=== PATIENT | female | born 1955 | race Caucasian/White ===

== ENCOUNTER → 2021-05-25 | Outpatient (CLI) | payer OTHER, MEDICARE ==
[~2021-05-25] MED LIST: ACID REDUCER20 MG PO; AMLODIPINE BESY10 MG PO; AVAPRO300 MG PO; BONE UP PO; CHILDREN'S ASPI81 M1 PO; CYCLOBENZAPRINE5 MG PO; MIRALAX17 GM PO; NADOLOL 20 MG T20 M1 PO; OMEPRAZOLE 20 M20 M1 PO; PROBIOTIC1 EAC7 PO; ROSUVASTATIN CA10 MG PO; STOOL SOFTENER100 MG PO; TURMERIC 500 M1 EACH PO; XANAX 0.25 MG0.25 MG PO; ZINC16.7 MG PO
[2021-05-25 12:32] LABS: HEMATOCRIT 39.6 % (37.0-47.0); HEMOGLOBIN 13.1 gm/dL (12.0-15.0); MCH 29.7 pg (26.0-34.0); MCHC 33.2 g/dL (28.0-37.0); MCV 89.6 fL (80.0-100.0); RBC 4.42 mil/uL (4.20-5.00); RDW 13.3 % (10.5-14.5); WBC 3.8 thou/uL (4.0-11.0)
[2021-05-25 12:39] LABS: ALBUMIN 4.3 g/dL (3.4-5.0); CALCIUM 9.2 mg/dL (8.5-10.1); CREATININE 0.7 mg/dL (0.6-1.0)
[2021-05-25 12:40] LABS: URINE BILIRUBIN NEGATIVE (Negative); URINE BLOOD NEGATIVE (Negative); URINE CLARITY CLEAR; URINE COLOR YELLOW; URINE GLUCOSE-RANDOM* NEGATIVE (Negative); URINE KETONES NEGATIVE (Negative); URINE LEUKOCYTES-REFLEX NEGATIVE (Negative); URINE NITRITE-REFLEX NEGATIVE (Negative); URINE PROTEIN (DIPSTICK) NEGATIVE (Negative); URINE SPECIFIC GRAVITY <= 1.005 (1.005-1.035); URINE UROBILINOGEN 0.2 E.U./dl (0.2-1.0)
[2021-05-25 12:47] LABS: INR 0.97; PROTIME 10.6 Seconds (10.5-12.1)
== END ==
LOC: PAC 10:57
PROVIDERS: ATTEND Orthopaedic Surgery
DX: Z01.812 Encounter for preprocedural laboratory examination (principal); M17.11 Unilateral primary osteoarthritis, right knee

== ENCOUNTER 2021-06-07 10:07 | Observation (INO) | payer OTHER, MEDICARE ==
[~2021-06-07] VITALS: Ht 172.7 cm; Wt 79.8 kg
[2021-06-07 12:24] VITALS: BP 163/83
--- NOTE | 2021-06-07 18:03 | NUR ---
A/O X 4. ROOM AIR. BEDBOUND. LEFT HIP ANUPAM DRAIN. POLAR PACK TO LEFT LEG. BILATERAL LEG JOHANN HOSE. BILATERAL SCDS. LEFT FOREARM WITH D5 1/2 NS @ 100 MLS/HR. AT BEDSIDE. PAIN LEVEL 6/10 TO LEFT HIP.
[2021-06-07 19:16] VITALS: BP 146/77
[2021-06-07 23:37] VITALS: BP 146/84
[2021-06-08 01:40] VITALS: BP 170/91
[2021-06-08 01:45] VITALS: BP 165/90
--- NOTE | 2021-06-08 03:02 | NUR ---
PT IS A/O X4 AND IS UP WITH ASSISTANCE. CURRENTLY ON BEDREST FOLLOWING PROCEDURE AWAITING EVALUATION WITH PHYSICAL THERAPY IN THE AM. PT C/O PAIN AND NAUSEA. PRN PAIN AND NAUSEA MEDICATION GIVEN DIRECTED. PT BP ELEVATED. NOTIFIED ONCALL. NO NEW ORDERS GIVEN. WILL CONTINUE TO MONITOR BP AND CONDITION OF PT. ASYMPTOMATIC WITH ELEVATED BP. SCHEDULED BP MEDICATION GIVEN DIRECTED. DRSG TO LEFT KNEE IS C/D/I. POLAR PACK, SCD'S, AND JOHANN HOSE IN PLACE. FALL PRECAUTIONS IN PLACE, CALL LIGHT IS WITHIN REACH. PT CALLS OUT APPROPRIATELY FOR ASSISTANCE.
[2021-06-08 08:44] VITALS: BP 142/78
--- NOTE | 2021-06-08 09:19 | NUR ---
Assumed care of pt at 0700. Pt a&ox4. Pain controlled. Dressing c/d/i. Polar care in place. JOHANN hose and SCDs in place. Pt will work with physical therapy this am. Possible d/c to home if cleared by physical therapy and pain controlled. Call light within reach. Fall precautions in place. Will continue to monitor.
--- NOTE | 2021-06-08 09:39 | O ---
[facility] [place] [address] OPERATIVE REPORT Name: ZOHREH MENDOZA Room #: 437-[facility] Avril Campa#: [id number] Admission: 06/07/21 Attend Phys: Kirk Salvador MD Discharge: Date of : 53 Report #: [id number] THIS REPORT FOR: cc: ANISA EDMOND - Family physician unknown Kirk Salvador MD ~ DATE OF SERVICE: 06/07/2021 PREOPERATIVE DIAGNOSIS: Left knee osteoarthritis. POSTOPERATIVE DIAGNOSIS: Left knee osteoarthritis. PROCEDURE: Left total knee arthroplasty using Navio robotic assistance. SURGEON: Kirk Salvador MD DIRECTOR EDUCATION: Kusum Cosme PA-C INDICATION FOR DIRECTOR EDUCATION: Throughout the case, extensive retraction, manipulation of the knee was required. This was afforded to me by my assistant media buyer ANESTHESIA: LMA with adductor canal block. IMPLANTS: A [employer] size 4 Journey II BCS Oxinium femur, size 3 tibia, size 11 constrained polyethylene and size 32 patella. TOURNIQUET TIME: 53 minutes. ESTIMATED BLOOD LOSS: 25 mL COMPLICATIONS: None. SPECIMENS: None. CONDITION UPON LEAVING THE OR: Stable. INDICATIONS FOR PROCEDURE: The patient is a 65-year-old female with left knee osteoarthritis. She had failed conservative measures for this and after discussion with her, she elected for left total knee arthroplasty. DESCRIPTION OF PROCEDURE: Risks, benefits, alternatives, complications were discussed in detail with the patient including but not limited to risk of anesthesia, risk of damage to nerves, arteries, blood vessels, risk for infection, bleeding, risk for continued knee pain and need for reoperation. Informed consent was obtained from the patient. The left knee was appropriately marked in the preoperative holding area. IV Ancef was given for preoperative [address] [address] OPERATIVE REPORT Name: ZOHREH MENDOZA Room #: 437-[facility] Avril Campa#: [id number] Admission: 06/07/21 Attend Phys: Kirk Salvador MD Discharge: Date of : 53 Report #: [id number]. She was brought to the operating room and placed in supine position on the operating table. LMA anesthesia was induced without complication. Tourniquet was placed on the left thigh. Left lower extremity was prepped and draped in normal sterile fashion. Timeout was performed properly identifying the patient and procedure as well as the instrumentation and implants. All in the operating room are in agreement. The left lower extremity was exsanguinated and tourniquet inflated. The tourniquet time was 53 minutes. Standard midline approach to the knee was made with a 10 blade through the skin. Dissection was taken sharply to the fascia and deep flaps were developed medially and laterally. A fresh 10 blade was used to make the medial parapatellar arthrotomy and the knee was inspected. There was severe tricompartmental valgus osteoarthritis of the knee. ACL and PCL were removed sharply. Reference pins were placed in the femur and the tibia. The knee was then digitally mapped using the [employer] robotic system. Intraoperative plan was made. We sized the size 4 femur, the size 3 tibia and 10 spacer. After acceptance of the intraoperative plan, the distal femoral cut was made with Navio bur. Distal femoral cutting block was pinned in place and chamfer cuts were made. Attention was turned to the tibia. Remainder of the menisci removed with Bovie cautery. Tibial resection guide was pinned in place using Navio for placement and tibial resection was made. Flexion and extension gaps were checked and found to have good balance in flexion and extension both medially and laterally. Tibia sized, found to be a size 3. Size 3 tibial trial was placed, pinned and punched. Size 4 femoral trial was placed and box cut was made. This was then trialed with a 10 and then a size 11 polyethylene. Size 11 polyethylene demonstrated 1 mm laxity laterally throughout range of motion of the knee with up to 2-3 mm medially, ____ extension as well. We could make up for this with a constrained implant. A 9 mm of bone was resected from the posterior surface of the patella and a size 32 patellar trial button was placed. Knee was taken through range of motion, found to be stable, found to have good patellar tracking. Trial components were removed. Bone ends were thoroughly irrigated with normal saline. A final size 3 tibia, size 4 Journey II BCS Oxinium femur and a size 32 patella were cemented in place using standard cementation techniques. While the cement cured, a periarticular injection consisting of morphine, ropivacaine, epinephrine, Toradol was placed around the knee joint capsule. After the cement cured, the tourniquet was deflated. Hemostasis obtained with Bovie cautery. A final size 11 constrained polyethylene was placed. A gram of vancomycin was placed deep in the joint. The fascia was closed with 0 Vicryl. Skin was closed with 2-0 Vicryl, 3-0 Monocryl. Dermabond and a ANUPAM dressing was applied. The patient tolerated this procedure well and went to recovery room under care of anesthesia postoperatively. <ELECTRONICALLY SIGNED> By: Kirk Salvador MD 06/08/21 [id number] Kirk Salvador MD /nt
--- NOTE | 2021-06-08 11:44 | NUR ---
INITIAL ASSESSMENT: SW reviewed chart and spoke with nursing. Pt is POD# 1 left TKA. Pt to work with physical therapy this afternoon and then will likely discharge home. Pt will need a roller walker. SW met with pt and spouse at bedside. Introduced role of SW. Pt is alert/orientated x 4. Pt and spouse live at home. Prior to admission, pt was independent with ADLs. No use of DME. There are 3 steps to enter the home and about 12 steps inside. No hx of services or post-acute placement. Pt states she has outpatient therapy already arranged to start tomorrow. SW discussed recommendation for roller walker. DME options provided. No preference voiced. SW contacted [facility] liaison to have a roller walker delivered to pt's room this afternoon. Script to be obtained from [facility]. Contact info for [facility] placed in pt's discharge summary. Pt's family will provide transportation home when discharged. No additional SW needs identified at this time. SW is available to assist should needs arise.
[2021-06-08 15:06] VITALS: BP 142/78
== END 2021-06-08 15:40 | disposition home or self-care (01) ==
LOC: OR → TBA 10:07 → OR 10:14 → 4S 15:34 → OR 15:35 → 4S 06-08 15:40
PROVIDERS: ADMIT Orthopaedic Surgery; ATTEND Orthopaedic Surgery
DX: M17.12 Unilateral primary osteoarthritis, left knee (principal); Z20.822 Contact with and (suspected) exposure to COVID-19; E78.5 Hyperlipidemia, unspecified; Z79.899 Other long term (current) drug therapy
CPT/HCPCS: 50010; 50101; 50415; 50954; 51130; 51225; 51320; 53000; 53078; 53365; 54118; 56527; 56528; 57095; 57103; 57110; 57127; 57179; 62110; 62900; 64042; 70005